=== PATIENT | male | born 1990 | race Caucasian/White ===

== ENCOUNTER 2017-02-19 01:48 | Emergency (ER) | payer OTHER ==
[~2017-02-19] VITALS: Ht 190.5 cm; Wt 90.7 kg
[2017-02-19 02:01] VITALS: TEMP 97.6
[2017-02-19] MEDS ORDERED: PREDNISONE20 MG PO (02:43)
[2017-02-19 03:54] VITALS: BP 120/84; PULSE 80
== END 2017-02-19 03:57 | disposition home or self-care (01) ==
LOC: COL.ER 01:48
DX: L50.9 Urticaria, unspecified (principal)
CPT/HCPCS: J1200; J2930; J7030